=== PATIENT | female | born 1950 | race Caucasian/White ===

== ENCOUNTER 2017-06-24 17:33 | Emergency (ER) | payer MEDICARE, MEDICAID ==
[2017-06-24 18:01] LABS: ABSOLUTE BASOPHILS # (AUTO) 0.1 10^3/uL (0.0-0.2); ABSOLUTE LYMPHOCYTES (AUTO) 0.9 10^3/uL (0.5-4.7); ABSOLUTE MONOCYTES (AUTO) 0.5 10^3/uL (0.1-1.4); ABSOLUTE NEUT (AUTO) 6.1 10^3/uL (1.7-8.2); BASOPHILS % (AUTO) 0.7 % (0-2); EOSINOPHILS % (AUTO) 0.5 % (0-6); HEMATOCRIT 42.2 % (36.0-47.0); HEMOGLOBIN 13.5 g/dL (12.0-15.5); LYMPHOCYTES % (AUTO) 12.5 % (13-45); MEAN CORPUSCULAR HEMOGLOBIN 26.5 pg (27.0-33.4); MEAN CORPUSCULAR HGB CONC 31.9 g/dL (32.0-36.0); MEAN CORPUSCULAR VOLUME 83 fl (80-97); MONOCYTES % (AUTO) 6.7 % (3-13); PLATELET COUNT 178 10^3/uL (150-450); RED BLOOD COUNT 5.09 10^6/uL (3.72-5.28); RED CELL DISTRIBUTION WIDTH 14.7 % (11.5-14.0); SEGMENTED NEUTROPHILS % (AUTO) 79.6 % (42-78); TOTAL CELLS COUNTED % (AUTO) 100 %; WHITE BLOOD COUNT 7.6 10^3/uL (4.0-10.5)
[2017-06-24 18:22] LABS: ALANINE AMINOTRANSFERASE 40 U/L (9-52); ALBUMIN 3.9 g/dL (3.5-5.0); ALKALINE PHOSPHATASE 67 U/L (38-126); ANION GAP 12 (5-19); ASPARTATE AMINO TRANSFERASE 42 U/L (14-36); BILIRUBIN,DIRECT 0.6 mg/dL (0.0-0.4); BILIRUBIN,TOTAL 0.6 mg/dL (0.2-1.3); BLOOD UREA NITROGEN 15 mg/dL (7-20); CALCIUM 9.4 mg/dL (8.4-10.2); CARBON DIOXIDE 27 mmol/L (22-30); CHLORIDE 94 mmol/L (98-107); CREATINE KINASE 47 U/L (30-135); GLUCOSE 116 mg/dL (75-110); POTASSIUM 5.1 mmol/L (3.6-5.0); SODIUM 133.4 mmol/L (137-145); TOTAL PROTEIN 6.7 g/dL (6.3-8.2)
[2017-06-24] MEDS ORDERED: DILTIAZEM HCL INJ 25 MG/5 ML VIAL IV ONE (18:29)
[2017-06-24] MEDS ORDERED: CEFEPIME 2 GM/D5W RTU 50 ML IV ONE (18:29)
[2017-06-24] MEDS ORDERED: DILTIAZEM HCL/D5W 125 MG/125 ML RTUINJ IV PRN (18:29)
[2017-06-24] MEDS ORDERED: LEVOFLOXACIN 750 MG/D5W RTU 750 MG/150 ML RTUPB IV ONE (18:30)
[2017-06-24 18:34] LABS: CREATINE KINASE MB 1.04 ng/mL (<4.55); NT PRO BNP 6370 pg/mL (5-900)
[2017-06-24 18:35] LABS: TROPONIN I < 0.012 ng/mL
--- NOTE | 2017-06-24 18:36 | ER Document Report ---
ED General - General Chief Complaint: Breathing Difficulty Stated Complaint: BREATHING DIFFICULTY Time Seen by Provider: 06/24/17 18:28 Notes: Patient is a 67-year-old female with a past medical history of CHF and COPD, actively smoking over one pack per day who presents with 3 weeks of progressively worsening shortness of breath. Patient is a very poor historian, struggles to provide an accurate medical history as well as a relation of her baseline medical problems. However she states the only medical problems that she knows of is CHF and COPD and only medication that she knows that she takes is atenolol. She does however note that she has a nebulizer machine at home that she has been using but that has not improved her symptoms over the last 3 weeks. She states that when that was worse today was that the shortness of breath seemed to be getting more intense and was preventing her from even getting up and walking around her home. Part of the past several weeks she denies any history of similar symptoms in the past. She has not seen a primary care doctor regarding today's concerns. She denies any chest pain, hemoptysis, syncope, or unilateral leg swelling. No history of DVT or pulmonary embolus. TRAVEL OUTSIDE OF THE [place] IN LAST 30 DAYS: No - Related Data Allergies/Adverse Reactions: cephalexin [From Keflex] Allergy (Verified 06/24/17 19:06) prednisone Adverse Reaction (Verified 06/24/17 19:06) Past Medical History - General Information source: Patient - Social History Smoking Status: Current Every Day Smoker Frequency of alcohol use: None Drug Abuse: None Lives with: Alone Family History: Reviewed & Not Pertinent Review of Systems - Review of Systems Notes: Constitutional: Negative for fever. HENT: Negative for sore throat. Eyes: Negative for visual changes. Cardiovascular: Negative for chest pain, positive for palpitations Respiratory: Positive for shortness of breath. Gastrointestinal: Negative for abdominal pain, vomiting or diarrhea. Genitourinary: Negative for dysuria. Musculoskeletal: Negative for back pain. Skin: Negative for rash. Neurological: Negative for headaches, weakness or numbness. 10 point ROS negative except as marked above and in HPI. Physical Exam - Vital signs Vitals: Resp BP Pulse Ox 23 H 139/109 H 100 06/24/17 17:39 06/24/17 17:39 06/24/17 17:39 Notes: PHYSICAL EXAMINATION: GENERAL: Appears uncomfortable, in moderate respiratory distress. HEAD: Atraumatic, normocephalic. EYES: Pupils equal round and reactive to light, extraocular movements intact, sclera anicteric, conjunctiva are normal. ENT: nares patent, oropharynx clear without exudates. Moderately dry mucous membranes. NECK: Normal range of motion, supple without lymphadenopathy LUNGS: Near absent breath sounds on the left, scant end expiratory wheezing on the right. Moderate tachypnea with respiratory rate ranging between 30 and 36+/ min. HEART: Irregularly irregular tachycardia without murmurs ABDOMEN: Soft, nontender, normoactive bowel sounds. No guarding, no rebound. No masses appreciated. EXTREMITIES: Normal range of motion, trace edema in the bilateral lower extremities that is equal and symmetric, no cyanosis. NEUROLOGICAL: No focal neurological deficits. Moves all extremities spontaneously and on command. PSYCH: Moderately anxious SKIN: Warm, Dry, normal turgor, no rashes or lesions noted. Course - Re-evaluation Re-evalutation: 06/24/17 18:31 Patient presents in moderate respiratory distress breathing approximate 30 times per minute saturating initially 86% on 3 L by nasal cannula does not use oxygen at baseline. Patient is an extremely poor historian, has difficulty telling me what has been going on but reports that for the past 3 weeks she has been having progressively worsening shortness of breath. Her chest x-ray shows complete whiteout of the left lung suggestive of either an empyema or a massive pneumonia. However, she has no fever or leukocytosis that would support this diagnosis. The patient also presents in A. fib with rapid ventricular response. She denies any known history of A. fib. She does not appear to be overtly fluid overloaded although she does carry a diagnosis of CHF. However based on her chest x-ray and clinical exam I do not suspect an acute CHF exacerbation. Patient may have a mild component of COPD exacerbating the clinical picture however she has minimal wheezing bilaterally in the dominant lung examination your absence of breath sounds on the left. She will be placed on BiPAP, IV levofloxacin will be started, and I will also initiate a diltiazem infusion after bolusing diltiazem. Will also proceed with CT of the chest to better clarify what we are visualizing on the chest x-ray. 06/24/17 20:42 CTA demonstrates a complete collapse of the left lung with an associated mass and extremely large pleural effusion. This is consistent with patient having acute malignancy likely blocking the bronchus of the right and causing it is extensive pleural effusion with associated collapse. Patient will require transfer for bronchoscopy, biopsy and likely CT surgery. She is much clinically improved on the diltiazem infusion and BiPAP, heart rate has down trended into the 120s, pressure currently 105 on 83 and she is saturating 99% on 35% FiO2 on 12 on 6 by BiPAP. I have contacted [facility] for transfer and awaiting callback 06/24/17 21:09 I have discussed this case with who has accepted the patient in transfer. I have discussed the findings of the patient's CT scan with her at length and informed her that she likely has lung cancer. She is agreeable to transfer. I have transitioned the patient from BiPAP to 4 L by nasal cannula as she is extremely claustrophobic and seems to be tolerating the nasal cannula well. She is continues without tachypnea, oxygen saturation between 99-100% on 4 L by nasal cannula. 06/25/17 00:29 Patient continues to be hemodynamically within normal limits at this time, continues to tolerate nasal cannula without difficulty. Diltiazem infusion at 15 mg/min. - Vital Signs Vital signs: Temp Pulse Resp BP Pulse Ox 98.2 F 159 H 14 105/83 99 06/24/17 18:09 06/24/17 18:09 06/24/17 23:05 06/24/17 21:11 06/24/17 23:05 - Laboratory Result Diagrams: 06/24/17 17:48 06/24/17 17:48 Laboratory results interpreted by me: 06/24/17 06/24/17 06/24/17 17:48 17:48 17:48 MCH 26.5 L MCHC 31.9 L RDW 14.7 H Seg Neutrophils % 79.6 H Lymphocytes % 12.5 L Sodium 133.4 L Potassium 5.1 H Chloride 94 L Creatinine 0.49 L Glucose 116 H Direct Bilirubin 0.6 H AST 42 H NT-Pro-B Natriuret Pep 6370 H Urine Protein Urine Ketones Urine Blood Urine Urobilinogen 06/24/17 20:57 MCH MCHC RDW Seg Neutrophils % Lymphocytes % Sodium Potassium Chloride Creatinine Glucose Direct Bilirubin AST NT-Pro-B Natriuret Pep Urine Protein 100 H Urine Ketones TRACE H Urine Blood SMALL H Urine Urobilinogen 2.0 H - Diagnostic Test Radiology reviewed: Image reviewed, Reports reviewed Radiology results interpreted by me: 06/24/17 18:33 Chest x-ray: Complete whiteout of the left lung, hyperinflation bilaterally - EKG Interpretation by Me Additional EKG results interpreted by me: 06/24/17 18:35 A. fib with rapid ventricular response, rate 144. No ST elevations or depressions. QTC is 458. Critical Care Note - Critical Care Note Total time excluding time spent on procedures (mins): 45 Comments: Critical care time spent obtaining history from patient or surrogate, discussions with consultants, development of treatment plan with patient or surrogate, evaluation of patient's response to treatment, examination of patient , ordering and performing treatments and interventions, ordering and review of laboratory studies, re-evaluation of patient's condition, ordering and review of radiographic studies and review of old charts Discharge - Discharge Clinical Impression: Lung mass, Pleural effusion, left, Respiratory distress, Atrial fibrillation with RVR Condition: Fair Disposition: [facility] Referrals: PAULO WALLER MD [Primary Care Provider] - Follow up as needed
--- NOTE | 2017-06-24 19:29 | RADIOLOGY REPORT (SQ) ---
EXAM DESCRIPTION: CHEST SINGLE VIEW COMPLETED DATE/TIME: 06/24/2017 6:30 pm REASON FOR STUDY: SOB COMPARISON: Chest x-ray 05/14/2017. EXAM PARAMETERS: NUMBER OF VIEWS: One view. TECHNIQUE: Single frontal radiographic view of the chest acquired. RADIATION DOSE: NA LIMITATIONS: None. FINDINGS: LUNGS AND PLEURA: There is complete opacification of the left hemithorax. The right lung is grossly clear. MEDIASTINUM AND HILAR STRUCTURES: Partially obscured. HEART AND VASCULAR STRUCTURES: The cardiac silhouette is obscured. No overt vascular congestion at t he right lung. BONES: No acute findings. HARDWARE: None in the chest. IMPRESSION: Complete opacification of the left hemithorax, may be secondary to large pleural effusio n, left lung atelectasis or diffuse pneumonia. TECHNICAL DOCUMENTATION: JOB ID: [id number] 2010 [employer]- All Rights Reserved Reading location - IP/workstation name: [email or web address]
[2017-06-24] MEDS ORDERED: HALOPERIDOL LACTATE INJ 5 MG/1 ML VIAL IV ONE (20:05)
--- NOTE | 2017-06-24 20:07 | RADIOLOGY REPORT (SQ) ---
EXAM DESCRIPTION: CTA CHEST COMPLETED DATE/TIME: 06/24/2017 7:23 pm REASON FOR STUDY: white out of the left lung on cxr COMPARISON: Chest x-ray 06/24/2017. TECHNIQUE: CT scan of the chest performed using helical scanning technique with dynamic intravenous contrast injection. Images reviewed with lung, soft tissue and bone windows. Reconstructed coronal and sagittal MPR images reviewed. Additional 3 dimensional post-processing performed to develop Maximal Intensity Projection images ([place] P). All images stored on PACS. All CT scanners at this facility use dose modulation, iterative reconstruction, and/or weight based d osing when appropriate to reduce radiation dose to as low as reasonably achievable (ALARA). [facility]: Dose Right [facility]: CareDose [facility]: Dose Right [facility]: Teradose 4D [facility]: [employer] CONTRAST TYPE AND DOSE: contrast/concentration: Isovue 370.00 mg/ml; Total Contrast Delivered: 77.0 ml; Total Saline Delivered: 110.0 ml Contrast bolus optimized for the pulmonary arteries. Not diagnostic for the aorta. RENAL FUNCTION: Creatinine 0.49 RADIATION DOSE: CT Rad equipment meets quality standard of care and radiation dose reduction techniq ues were employed. CTDIvol: 18.0 - 29.8 mGy. DLP: 698 mGy-cm. . LIMITATIONS: Motion artifact. FINDINGS: LUNGS AND PLEURA: There is motion artifact. There is large sided left pleural effusion wi th complete collapse of the left lung. Emphysematous changes at the right lung. No pneumothorax. AORTA AND GREAT VESSELS: No thoracic aortic aneurysm. Contrast bolus not optimized for the aorta. T he main pulmonary artery is dilated. HEART: No pericardial effusion. The heart is enlarged. PULMONARY ARTERIES: No emboli visualized in the main pulmonary arteries or the segmental branches. HILAR AND MEDIASTINAL STRUCTURES: Prevascular enlarged lymph node is measuring 2.7 x 1.8 cm. There i s a soft tissue density in the left suprahilar region measuring 3.9 x 5.9 cm. HARDWARE: None in the chest. UPPER ABDOMEN: There is intravenous contrast reflux into the IVC and the hepatic veins. BONES: Degenerative changes in the spine. 3D MIPS: Confirm above findings. IMPRESSION: 1. No pulmonary emboli. 2. Cardiomegaly. Dilated main pulmonary artery. Reflux of intravenous contrast into the IVC and the hepatic veins, may be seen with right heart failure. 3. Large left-sided pleural effusion with collapse of the left lung, may be secondary to a mucous plu g, endobronchial lesion or lung mass. Correlation with bronchoscopy and PET/CT recommended. 4. Large soft tissue density at the left suprahilar region, worrisome for a mass. Mediastinal adeno abril. These findings can be better evaluated on PET/CT. 5. Emphysema. COMMENT: Quality ID # [id number]: Final reports with documentation of one or more dose reduction techniques (e.g., Automated exposure control, adjustment of the mA and/or kV according to patient size, use of iterative reconstruction technique) TECHNICAL DOCUMENTATION: JOB ID: [id number] [id number] 2010 [employer]- All Rights Reserved Reading location - IP/workstation name: [email or web address]
--- NOTE | 2017-06-24 20:20 | EKG REPORT ---
SEVERITY:- ABNORMAL ECG - ATRIAL FIBRILLATION WITH RVR CONSIDER ANTERIOR INFARCT : Confirmed by: Car Bruner MD 24-Jun-2017 20:19:09
[2017-06-24 21:23] LABS: BILIRUBIN,URINE NEGATIVE (NEGATIVE); COLOR,URINE YELLOW; GLUCOSE, URINE NEGATIVE (NEGATIVE); KETONES,URINE TRACE mg/dL (NEGATIVE); LEUKOCYTE ESTERASE,URINE NEGATIVE (NEGATIVE); NITRITE,URINE NEGATIVE (NEGATIVE); PROTEIN,URINE 100 mg/dL (NEGATIVE); URINE SPECIFIC GRAVITY 1.048
[2017-06-24 21:24] LABS: APPEARANCE,URINE CLEAR
[2017-06-25] MEDS ORDERED: HALOPERIDOL LACTATE INJ 5 MG/1 ML VIAL IV ONE (00:28)
[2017-06-25 03:00] VITALS: BP 130/87
== END 2017-06-25 03:30 | disposition short-term general hospital (02) ==
LOC: ER 17:33
DX: R00.2 Palpitations (principal); R06.02 Shortness of breath; R91.8 Other nonspecific abnormal finding of lung field; J90 Pleural effusion, not elsewhere classified; R06.03 Acute respiratory distress; I48.91 Unspecified atrial fibrillation; F17.200 Nicotine dependence, unspecified, uncomplicated; J44.9 Chronic obstructive pulmonary disease, unspecified; I50.9 Heart failure, unspecified
CPT/HCPCS: 93005; 96376; 99291; 96375; 96365; 96366; 96368; 36415; 87040; 82553; 82550; 85025; 80053; 81001; 84484; 83880; 71045; 71275; 93010; J1630 ×2; J3490 ×2; J1956